=== PATIENT | female | born 1995 ===

== ENCOUNTER → 2017-10-03 | Outpatient (CLI) | payer MEDICAID, OTHER ==
--- NOTE | 2017-10-03 11:04 | Diagnostic Imaging Report ---
PROCEDURE: US OB SINGLE FETUS <14 WKS. TECHNIQUE: Multiple real-time grayscale images were obtained over the gravid uterus in various projections. INDICATION: Dating. FINDINGS: There is an intrauterine gestational sac containing a pole. measurements are consistent with 14 weeks 2 days gestation. heart rate was recorded at 160 beats per minute. No perigestational sac hemorrhage is identified. Adnexa is unremarkable. Ovaries were obscured by bowel gas. Gestational sac shape is within normal limits. IMPRESSION: Single live IUP of 14 weeks 2 days gestational age. Estimated date of confinement sonographic is 04/01/2018. Dictated by: Dictated on workstation # [id number]
== END ==
LOC: RAD 10:00
PROVIDERS: ATTEND Family Medicine
DX: Z34.91 Encounter for supervision of normal pregnancy, unspecified, first trimester (principal); Z3A.14 14 weeks gestation of pregnancy
CPT/HCPCS: 76801

== ENCOUNTER → 2018-01-30 | Outpatient (CLI) | payer OTHER ==
--- NOTE | 2018-01-30 14:01 | Diagnostic Imaging Report ---
INDICATION: Undergoing anatomical assessment. TECHNIQUE: Multiple real-time grayscale images were obtained over the gravid uterus. COMPARISON: 10/03/2017. FINDINGS: There is presence of single viable intrauterine , currently in cephalic presentation. Normal amount of amniotic fluid with an index at 12 cm. Placenta is anterior and without evidence for previa. anatomical assessment demonstrates visualization of the kidneys, bladder, stomach, and three-vessel cord which are appearing unremarkable. Multiple structures including the intracranial structures, cardiac structures, as well as spine and cord insertion site however are not well visualized at this assessment. Cervical length is 5.6 cm and appears unremarkable. Maternal adnexal structures are not visualized. Biometrical measurements are as follows: Biparietal 8.16 cm, age 32 weeks 6 days. Head circumference 28.72 cm, age 31 weeks 5 days. Abdominal circumference 29.61 cm, age 33 weeks 5 days. Femur length 6.58 cm, age 34 weeks 0 days. Sonographic estimate age: 33 weeks 1 days. Sonographic estimated date of delivery: 03/19/18. Estimated Weight: 2183 gm (+/- 319 gm). LMP percentile: 95%. heart rate: 146 beats per minute. number: 1 of 1. IMPRESSION: 1. Single viable intrauterine , currently in cephalic presentation. Sonographically estimated age at 33 weeks 1 day for an estimated date of delivery of March 19, 2018. This is noted to be nearly two weeks advanced compared to prior dating. 2. Nonvisualization of multiple anatomical structures. Visualized structures appear unremarkable. Dictated by: Dictated on workstation # [id number]
== END ==
LOC: RAD 12:22
PROVIDERS: ATTEND Family Medicine
DX: Z36.89 Encounter for other specified antenatal screening (principal); Z3A.33 33 weeks gestation of pregnancy
CPT/HCPCS: 76805

== ENCOUNTER → 2018-03-25 | Outpatient (CLI) | payer OTHER | LOC: LAB 08:09 | PROVIDERS: ATTEND Family Medicine | DX: Z34.93 Encounter for supervision of normal pregnancy, unspecified, third trimester (principal) | CPT/HCPCS: 36415; 82951; 82952; 82962 ==

== ENCOUNTER 2018-04-07 19:14 | Inpatient (IN) | payer OTHER ==
[~2018-04-07] VITALS: Ht 172.7 cm; Wt 128.4 kg
[2018-04-07 19:19] VITALS: BP 135/83
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
--- OUTSIDE RECORDS SUMMARY | 2018-04-07 19:20 | XMS REPORT ---
Author Author JEWELL OFELIA [facility] Address [address] [place] [address] Care Team Providers Care Elastic Cutter Name Role Phone JEWELLANA HENLEYHANY Unavailable PROBLEMS Type Condition ICD9-CM Code XHD54-PR Code Onset Dates Condition Status SNOMED Code Problem Other chronic pain G89.29 Active [id number] ALLERGIES No Information ENCOUNTERS Encounter Location Date Diagnosis [facility] [address] 31431- 1408 Feb, [facility] [address] 68548- 8992 Feb, [facility] [address] 01930- 8066 Jan, [facility] [address] 54120- 9615 Jan, [facility] [id number] [place] [address] 67334- 3968 Dec, care in third trimester Z34.93 and 28 weeks gestation of Z3A.28 [facility] [id number] [place] [address] 38113- 4720 Dec, [facility] [id number] [place] [address] 64283- 0998 Dec, [facility] [address] 96186- 9605 Dec, [facility] [id number] [place] [address] 73014- 3818 Nov, [facility] [address] 19298- 9153 Oct, [facility] [id number], [place] [address]- 4657 Oct, care in second trimester Z34.92 and 19 weeks gestation of Z3A.19 [facility] [address], [place] [address]- 3851 Oct, [facility] [address], [place] [address]- 3177 Sep, [facility] [address], [place] [address]- 4324 Sep, [facility] [id number] [place] [address] 35299- 1988 Sep, care in second trimester Z34.92 and 20 weeks gestation of Z3A.20 [facility] [address], [place] [address]- 7978 August, Dental examination Z01.20 [facility] [address], [place] [address]- 0812 August, [facility] [id number], [place] [address]- 3109 August, [facility] [address], [place] [address]- 5350 August, Normal , first Z34.00 ; First trimester Z34.90 and 15 weeks gestation of Z3A.15 [facility] [address], [place] [address]- 5384 August, [facility] [address], [place] [address]- 6005 Jul, [facility] [address], [place] [address]- 8033 Jul, Encounter for test, result unknown Z32.00 [facility] [address], [place] [address]- 0624 Jul, Encounter for test, result unknown Z32.00 [facility] [id number] [place] [address] 02699- 0451 14 May, 2016 Low back pain M54.5 ; Other chronic pain G89.29 and Acute non-recurrent frontal sinusitis J01.10 [facility] [id number] [place] [address] 28163- 0170 Apr, Acute right-sided low back pain without sciatica M54.5 [facility] [id number] [place] [address] 51700- 8455 Apr, Contusion T14.8 [facility] [address] 81012- 3995 Feb, Encounter for immunization Z23 [facility] [address] 97841- 1348 Nov, 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 and Constipation 564.00 [facility] [id number] [place] [address] 76705- 4861 Jul, [facility] [address] 63595- 4298 Jul, [facility] [id number] [place] [address] 67361- 4581 Apr, [facility] [id number] [place] [address] 88222- 6297 Apr, [facility] [id number] [place] [address] 07262- 8064 Apr, [facility] [id number] [place] [address] 03340- 2850 Apr, [facility] [id number] [place] [address] 09773- 7260 Jan, [facility] [id number] [place] [address] 81043- 3901 Jan, [facility] [address] [facility] [id number] [place] [address]- 2546 May, [facility] [address] [facility] [id number], [place] [address]- 2546 Mar, [facility] [address] [facility] [id number] [place] [address]- 1226 Mar, IMMUNIZATIONS No Known Immunizations SOCIAL HISTORY [...]
--- OUTSIDE RECORDS SUMMARY | 2018-04-07 19:20 | XMS REPORT ---
Author Author JEWELL OFELIA [facility] Address [address] [place] [address] Care Team Providers Care Green Hide Inspector Name Role Phone JEWELLANA HENLEYHANY Unavailable PROBLEMS Type Condition ICD9-CM Code AZG40-ZV Code Onset Dates Condition Status SNOMED Code Problem Other chronic pain G89.29 Active [id number] ALLERGIES No Information ENCOUNTERS Encounter Location Date Diagnosis [facility] [address] 29731- 9454 Feb, [facility] [address] 81885- 7224 Feb, [facility] [address] 31745- 9395 Jan, [facility] [address] 70430- 1410 Jan, [facility] [id number] [place] [address] 38251- 8228 Dec, care in third trimester Z34.93 and 28 weeks gestation of Z3A.28 [facility] [id number] [place] [address] 77271- 5937 Dec, [facility] [id number] [place] [address] 89159- 9884 Dec, [facility] [address] 90932- 8345 Dec, [facility] [id number] [place] [address] 32991- 9122 Nov, [facility] [address] 08242- 3747 Oct, [facility] [id number], [place] [address]- 7265 Oct, care in second trimester Z34.92 and 19 weeks gestation of Z3A.19 [facility] [address], [place] [address]- 3531 Oct, [facility] [address], [place] [address]- 2335 Sep, [facility] [address], [place] [address]- 2209 Sep, [facility] [id number] [place] [address] 98688- 2527 Sep, care in second trimester Z34.92 and 20 weeks gestation of Z3A.20 [facility] [address], [place] [address]- 3006 August, Dental examination Z01.20 [facility] [address], [place] [address]- 0365 August, [facility] [id number] [address]- 8412 August, [facility] [address], [place] [address]- 9020 August, Normal , first Z34.00 ; First trimester Z34.90 and 15 weeks gestation of Z3A.15 [facility] [address], [place] [address]- 1615 August, [facility] [address], [place] [address]- 2408 Jul, [facility] [address], [place] [address]- 0965 Jul, Encounter for test, result unknown Z32.00 [facility] [address], [place] [address]- 4594 Jul, Encounter for test, result unknown Z32.00 [facility] [id number] [place] [address] 58884- 4996 14 May, 2016 Low back pain M54.5 ; Other chronic pain G89.29 and Acute non-recurrent frontal sinusitis J01.10 [facility] [id number] [place] [address] 07518- 2662 Apr, Acute right-sided low back pain without sciatica M54.5 [facility] [id number] [place] [address] 92958- 5226 Apr, Contusion T14.8 [facility] [address] 95498- 8927 Feb, Encounter for immunization Z23 [facility] [address] 71917- 2841 Nov, 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 and Constipation 564.00 [facility] [id number] [place] [address] 01875- 2608 Jul, [facility] [address] 72033- 0755 Jul, [facility] [id number] [place] [address] 48658- 5372 Apr, [facility] [id number] [place] [address] 60663- 4111 Apr, [facility] [id number] [place] [address] 36357- 0710 Apr, [facility] [id number] [place] [address] 91247- 1372 Apr, [facility] [id number] [place] [address] 88286- 9867 Jan, [facility] [id number] [place] [address] 31755- 6236 Jan, [facility] [address] [facility] [id number] [place] [address]- 2546 May, [facility] [address] [facility] [id number], [place] [address]- 2546 Mar, [facility] [address] [facility] [id number] [place] [address]- 2206 Mar, IMMUNIZATIONS No Known Immunizations SOCIAL HISTORY [...]
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
--- OUTSIDE RECORDS SUMMARY | 2018-04-07 19:21 | XMS REPORT ---
Author Author JEWELL OFELIA [facility] Address [address] [place] [address] Care Team Providers Care Pattern Cleaner Name Role Phone JEWELLANA HENLEYHANY Unavailable PROBLEMS Type Condition ICD9-CM Code FAE06-LF Code Onset Dates Condition Status SNOMED Code Problem Other chronic pain G89.29 Active 99935579 ALLERGIES No Information ENCOUNTERS Encounter Location Date Diagnosis [facility] [address] 35240- 7529 Feb, [facility] [address] 47981- 0963 Feb, [facility] [address] 50897- 4801 Jan, [facility] [address] 75771- 6064 Jan, [facility] [id number] [place] [address] 30199- 8727 Dec, care in third trimester Z34.93 and 28 weeks gestation of Z3A.28 [facility] [id number] [place] [address] 73065- 5640 Dec, [facility] [id number] [place] [address] 54198- 0471 Dec, [facility] [address] 12891- 7173 Dec, [facility] [id number] [place] [address] 39162- 9796 Nov, [facility] [address] 78531- 4389 Oct, [facility] [id number] [address]- 3627 Oct, care in second trimester Z34.92 and 19 weeks gestation of Z3A.19 [facility] [address], [place] [address]- 6795 Oct, [facility] [address], [place] [address]- 2850 Sep, [facility] [address], [place] [address]- 2430 Sep, [facility] [id number] [place] [address] 81645- 3992 Sep, care in second trimester Z34.92 and 20 weeks gestation of Z3A.20 [facility] [address], [place] [address]- 6006 August, Dental examination Z01.20 [facility] [address], [place] [address]- 3620 August, [facility] [id number], [place] [address]- 3682 August, [facility] [address], [place] [address]- 5832 August, Normal , first Z34.00 ; First trimester Z34.90 and 15 weeks gestation of Z3A.15 [facility] [address], [place] [address]- 1091 August, [facility] [address], [place] [address]- 5151 Jul, [facility] [address], [place] [address]- 5371 Jul, Encounter for test, result unknown Z32.00 [facility] [address], [place] [address]- 1210 Jul, Encounter for test, result unknown Z32.00 [facility] [id number] [place] [address] 31571- 1901 14 May, 2016 Low back pain M54.5 ; Other chronic pain G89.29 and Acute non-recurrent frontal sinusitis J01.10 [facility] [id number] [place] [address] 65744- 0012 Apr, Acute right-sided low back pain without sciatica M54.5 [facility] [id number] [place] [address] 26711- 4553 Apr, Contusion T14.8 [facility] [address] 73531- 6826 Feb, Encounter for immunization Z23 [facility] [address] 45521- 5645 Nov, 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 and Constipation 564.00 [facility] [id number] [place] [address] 23114- 5461 Jul, [facility] [address] 21510- 1074 Jul, [facility] [id number] [place] [address] 34213- 2038 Apr, [facility] [id number] [place] [address] 94049- 7136 Apr, [facility] [id number] [place] [address] 83829- 8474 Apr, [facility] [id number] [place] [address] 33081- 3461 Apr, [facility] [id number] [place] [address] 22830- 1816 Jan, [facility] [id number] [place] [address] 50481- 4477 Jan, [facility] [address] [facility] [id number] [place] [address]- 2546 May, [facility] [address] [facility] [id number] [address]- 2546 Mar, [facility] [address] [facility] [id number] [place] [address]- 0686 Mar, IMMUNIZATIONS No Known Immunizations SOCIAL HISTORY [...]
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
--- OUTSIDE RECORDS SUMMARY | 2018-04-07 19:21 | XMS REPORT ---
Author Author JEWELL OFELIA [facility] Address [address] [place] [address] Care Team Providers Care Signal Intelligence Analyst Name Role Phone JEWELLANA HENLEYHANY Unavailable PROBLEMS Type Condition ICD9-CM Code XVJ48-MH Code Onset Dates Condition Status SNOMED Code Problem Other chronic pain G89.29 Active 43031023 ALLERGIES No Information ENCOUNTERS Encounter Location Date Diagnosis [facility] [address] 15978- 3561 Feb, [facility] [address] 30173- 8872 Feb, [facility] [address] 58574- 6968 Jan, [facility] [id number] [place] [address] 37356- 7370 Jan, [facility] [id number] [place] [address] 38914- 6470 Dec, care in third trimester Z34.93 and 28 weeks gestation of Z3A.28 [facility] [id number] [place] [address] 99047- 1189 Dec, [facility] [id number] [place] [address] 57582- 2846 Dec, [facility] [address] 44288- 5375 Dec, [facility] [id number] [place] [address] 06809- 1268 Nov, [facility] [address] 01781- 0933 Oct, [facility] [id number] [address]- 5478 Oct, care in second trimester Z34.92 and 19 weeks gestation of Z3A.19 [facility] [address], [place] [address]- 8401 Oct, [facility] [address], [place] [address]- 0967 Sep, [facility] [address], [place] [address]- 9213 Sep, [facility] [id number] [place] [address] 05195- 7057 Sep, care in second trimester Z34.92 and 20 weeks gestation of Z3A.20 [facility] [address], [place] [address]- 9938 August, Dental examination Z01.20 [facility] [address], [place] [address]- 5396 August, [facility] [address] [address]- 4898 August, [facility] [address], [place] [address]- 0671 August, Normal , first Z34.00 ; First trimester Z34.90 and 15 weeks gestation of Z3A.15 [facility] [address], [place] [address]- 9894 August, [facility] [address], [place] [address]- 9548 Jul, [facility] [address], [place] [address]- 7754 Jul, Encounter for test, result unknown Z32.00 [facility] [address], [place] [address]- 6669 Jul, Encounter for test, result unknown Z32.00 [facility] [id number] [place] [address] 76858- 4264 14 May, 2016 Low back pain M54.5 ; Other chronic pain G89.29 and Acute non-recurrent frontal sinusitis J01.10 [facility] [id number] [place] [address] 53554- 9704 Apr, Acute right-sided low back pain without sciatica M54.5 [facility] [id number] [place] [address] 31376- 0318 Apr, Contusion T14.8 [facility] [address] 93641- 5406 Feb, Encounter for immunization Z23 [facility] [address] 94499- 1417 Nov, 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 and Constipation 564.00 [facility] [id number] [place] [address] 13827- 8450 Jul, [facility] [address] 48665- 6216 Jul, [facility] [id number] [place] [address] 19721- 1166 Apr, [facility] [id number] [place] [address] [id number]- [id number] Apr, [facility] [id number] [place] [address] 69970- 7445 Apr, [facility] [id number] [place] [address] 37582- 7757 Apr, [facility] [id number] [place] [address] [id number]- [phone] Jan, [facility] [id number] [place] [address] 81805- 1244 Jan, [facility] [address] [facility] [id number] [place] [address] May, [facility] [address] [facility] [id number] [address] Mar, [facility] [address] [facility] [id number] [place] [address] Mar, IMMUNIZATIONS No Known Immunizations SOCIAL HISTORY [...]
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
--- OUTSIDE RECORDS SUMMARY | 2018-04-07 19:22 | XMS REPORT ---
Author Author OFELIA FRANKLIN [facility] Address [address] [place] [address] Care Team Providers Care Nodulizer Name Role Phone OFELIA FRANKLIN Unavailable PROBLEMS Type Condition ICD9-CM Code OGT57-SX Code Onset Dates Condition Status SNOMED Code Problem Other chronic pain G89.29 Active 65627252 ALLERGIES Substance Reaction Event Type Date Status Penicillins Unknown Non Drug Allergy Apr, Active SOCIAL HISTORY No smoking Hx information available PLAN OF CARE Activity Details Follow Up pcp if not improving or if needing refill Reason: VITAL SIGNS Height 68.0 in 2016-04-25 Weight 225 lbs 2016-04-25 Temperature 99.2 degrees Fahrenheit 2016-04-25 Heart Rate 80 bpm 2016-04-25 Respiratory Rate 20 2016-04-25 BMI 34.21 kg/m2 2016-04-25 Blood pressure systolic 122 mmHg 2016-04-25 Blood pressure diastolic 72 mmHg 2016-04-25 MEDICATIONS Medication Instructions Dosage Frequency Start Date End Date Duration Status Cyclobenzaprine HCl 10 mg Orally at bedtime PRN 1 tablet Apr, Apr, 10 days Active Ibuprofen 200 mg Orally every 6 hrs 3-4 tablet as needed 6h Active RESULTS No Results PROCEDURES Procedure Date Ordered Related Diagnosis Body Site Office Visit, Est Pt., Level 3 Apr 25, 2016 IMMUNIZATIONS No Known Immunizations
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
--- OUTSIDE RECORDS SUMMARY | 2018-04-07 19:22 | XMS REPORT ---
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 Active Problem Other and unspecified cerebral laceration and contusion, without mention of open intracranial wound, unspecified state of consciousness 851.80 Active Problem Memory loss 780.93 Active Assessment Constipation 564.00 Active Problem Constipation 564.00 Active Problem Unspecified otitis media 382.9 Active Problem 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 Active Problem Dysuria 788.1 Active Problem Urinary tract infection, site not specified 599.0 Active Problem Acute pharyngitis 462 Active Problem Postnasal drip 784.91 Active Medications No Known Medications Procedures Procedure Coding System Code Date Office Visit, Est Pt., Level 4 CPT-4 03082 Dec 12, 2014 Vital Signs Date/Time: Dec 12, 2014 Temperature 98.1 F BMIPercentile 97.53 % Weight 218.8 lbs Height 68.0 in BMI 33.26 Index Blood Pressure Diastolic 60 mmHg Blood Pressure Systolic 102 mmHg Cardiac Monitoring Heart Rate 88 bpm Wt Percentile 98.68 % Ht Percentile 93.51 % Results No Known Results Summary Purpose eClinicalWorks Submission
--- OUTSIDE RECORDS SUMMARY | 2018-04-07 19:22 | XMS REPORT ---
Author Author JEWELL OFELIA [facility] Address [address] [place] [address] Care Team Providers Care Song Writer Name Role Phone JEWELLANA HENLEYHANY Unavailable PROBLEMS Type Condition ICD9-CM Code GSO33-BJ Code Onset Dates Condition Status SNOMED Code Problem Other chronic pain G89.29 Active 25494400 ALLERGIES No Information ENCOUNTERS Encounter Location Date Diagnosis [facility] [place] [address] [address] Nov, [place] [address] [address]- [address] Oct, care in second trimester Z34.92 and 19 weeks gestation of Z3A.19 [facility] [place] [address] [place] [id number] [place] [address]- [address] Oct, [facility] [place] [address] 47[address]- [address] Sep, [facility] [place] [address] [place] [id number] [place] [address] 12719- 6135 Sep, care in second trimester Z34.92 and 20 weeks gestation of Z3A.20 [facility] [place] [address] [place] [id number] [place] [address] 27149- 3344 August, Dental examination Z01.20 [facility] [place] [address] [place] [id number] [place] [address] 52242- 7334 August, [facility] [place] [address] [address]- [address] August, [facility] [place] [address] [place] [id number] [place] [address] 48268- 9597 09 May, 2018 Normal , first Z34.00 ; First trimester Z34.90 and 15 weeks gestation of Z3A.15 [place] [address] [place] [id number] [place] [address]65[address]- 4317 August, [facility] [place] [address] [place] [id number] [place] [address] 91697- 9852 Jul, [place] [address] [address]- [address] Jul, Encounter for test, result unknown Z32.00 [place] [address] [address]- [address] Jul, Encounter for test, result unknown Z32.00 [place] [address] [address]- [address] May, Low back pain M54.5 ; Other chronic pain G89.29 and Acute non-recurrent frontal sinusitis J01.10 [place] [address] [address]- 6[address] Apr, Acute right-sided low back pain without sciatica M54.5 [place] [address] [address]- [address] Apr, Contusion T14.8 [place] [address] [address]- [address] Feb, Encounter for immunization Z23 [place] [address] [address]- [address]60 Nov, 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 and Constipation 564.00 [place] [address] [address]- [address] Jul, [place] [address] [address]- 1384 Jul, [place] [address] 9[address]- 9[address] Apr, [place] [address] [address]- [address] Apr, [facility] [place] [address] [address] 2546 Apr, [facility] [place] [address] [address]- 2546 Apr, [facility] [place] [address] [address]- 25[address] Jan, [facility] [place] [address] [address]- 25[address] Jan, [facility] [place] [address] [address]- 2546 May, [facility] [place] [address] [address]- 2546 Mar, [facility] [place] [address] [address]- [address] Mar, IMMUNIZATIONS No Known Immunizations SOCIAL [...]
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
--- OUTSIDE RECORDS SUMMARY | 2018-04-07 19:22 | XMS REPORT | Continuity of Care Document ---
Author Author [facility] Address Unknown Phone Unavailable Allergies Active Description Code Type Severity Reaction Onset Reported/Identified Relationship to Patient Clinical Status Yes Penicillins Drug Allergy 03/23/2012 Yes Penicillins Drug Allergy N/A N/A 03/23/2012 Medications There is no data. Problems Date Dx Coded Attending Type Code Diagnosis Diagnosed By 01/16/2010 V06.5 DT, TETANUS- DIPHTHERIA [Td] ,TDAP 01/16/2010 V06.5 DT, TETANUS- DIPHTHERIA [Td] ,TDAP 01/16/2010 KAVON DING DO V06.5 DT, TETANUS-DIPHTHERIA [Td] ,TDAP 01/16/2010 SHAHLA GARCIA APRN A V06.5 DT, TETANUS-DIPHTHERIA [Td] ,TDAP 03/23/2012 382.9 OTITIS MEDIA 03/23/2012 382.9 OTITIS MEDIA 03/23/2012 KAVON DING DO 382.9 OTITIS MEDIA 03/23/2012 SHAHLA GARCIA APRN A 382.9 OTITIS MEDIA 05/26/2012 462 PHARYNGITIS ACUTE 05/26/2012 784.91 POSTNASAL DRIP 05/26/2012 KAVON DING DO 462 PHARYNGITIS ACUTE 05/26/2012 KAVON DING DO 784.91 POSTNASAL DRIP 05/26/2012 RADHA CHRISTINE SHAHLA A 462 PHARYNGITIS ACUTE 05/26/2012 EVAN GARCIA APRNYL A 784.91 POSTNASAL DRIP 02/08/2014 KAVON DING DO 780.93 MEMORY LOSS 02/08/2014 KAVON DING DO 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 CONTUSION WITHOUT OPEN INTRACRANIAL WOUND WITH STATE OF CONSCIOUSNESS UNSPECIFIED 02/08/2014 SHAHLA GARCIA APRN A 780.93 MEMORY LOSS 02/08/2014 SHAHLA GARCIA APRN A 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 CONTUSION WITHOUT OPEN INTRACRANIAL WOUND WITH STATE OF CONSCIOUSNESS UNSPECIFIED 04/28/2014 SHAHLA GARCIA APRN A 599.0 URINARY TRACT INFECTION 04/28/2014 SHAHLA GARCIA APRN A 788.1 DYSURIA 10/06/2017 OFELIA CORCORAN MD Ot Z34.91 ENCNTR FOR SUPRVSN OF NORMAL PREG, UNSP, 10/06/2017 OFELIA CORCORAN MD Ot Z3A.14 14 WEEKS GESTATION OF 10/06/2017 OFELAI CORCORAN MD Ot Z34.91 ENCNTR FOR SUPRVSN OF NORMAL PREG, UNSP, 10/06/2017 OFELIA CORCORAN MD Ot Z3A.14 14 WEEKS GESTATION OF 10/09/2017 OFELIA CORCORAN MD Ot Z34.91 ENCNTR FOR SUPRVSN OF NORMAL PREG, UNSP, 10/09/2017 OFELIA CORCORAN MD Ot Z3A.14 14 WEEKS GESTATION OF 10/23/2017 OFELIA CORCORAN MD Ot Z34.91 ENCNTR FOR SUPRVSN OF NORMAL PREG, UNSP, 10/23/2017 OFELIA CORCORAN MD Ot Z3A.14 14 WEEKS GESTATION OF 01/30/2018 OFELIA CORCORAN MD Ot Z34.91 ENCNTR FOR SUPRVSN OF NORMAL PREG, UNSP, 01/30/2018 OFELIA CORCORAN MD Ot Z3A.14 14 WEEKS GESTATION OF 02/18/2018 OFELIA CORCORAN MD Ot Z36.89 ENCOUNTER FOR OTHER SPECIFIED 02/18/2018 OFELIA CORCORAN MD Ot Z3A.33 33 WEEKS GESTATION OF 03/23/2018 OFELIA CORCORAN MD Ot Z34.91 ENCNTR FOR SUPRVSN OF NORMAL PREG, UNSP, 03/23/2018 OFELIA CORCORAN MD N Ot Z3A.14 14 WEEKS GESTATION OF 03/23/2018 OFELIA CORCORAN MD Ot Z36.89 ENCOUNTER FOR OTHER SPECIFIED 03/23/2018 OFELIA CORCORAN MD Ot Z3A.33 33 WEEKS GESTATION OF 03/23/2018 OFELIA CORCORAN MD Ot Z34.91 ENCNTR FOR SUPRVSN OF NORMAL PREG, UNSP, 03/23/2018 OFELIA CORCORAN MD, Ot Z3A.14 14 WEEKS GESTATION OF 03/23/2018 OFELIA CORCORAN MD, Ot Z36.89 ENCOUNTER FOR OTHER SPECIFIED 03/23/2018 OFELIA CORCORAN MD, Ot Z3A.33 33 WEEKS GESTATION OF 03/27/2018 OFELIA CORCORAN MD, Ot Z34.93 ENCNTR FOR SUPRVSN OF NORMAL PREG, UNSP, Procedures Code Description [place] [address] STREP A (IN-HOUSE) 05/26/[address] ANGIO, HEAD 02/08/2014 89700 UA W/ CULTURE IF INDICATED 04/28/2014 Results Test Result Range hCG,Beta Subunit,Qual,Serum - 07/30/16 16:04 hCG,Beta Subunit,Qual,Serum Negative mIU/mL Negative <6 CULTURE, GENITAL - 08/27/17 15:49 CULTURE, GENITAL SEE NOTE NRG PENTA SCREEN - 11/06/17 12:39 Maternal Weight 242 lbs NRG Est'd Date of Delivery 04/01/2018 NRG ASHKAN Determined by ULTRASOUND NRG Mother's Ethnic Origin NRG Number of Fetuses 1 NRG Insulin Depend Diabetic NO NRG Repeat Specimen NOT GIVEN NRG Hx Of Neural Tube Defects NO NRG Prev Down Synd NO NRG Donor Egg NO NRG Donor Age: Egg Retrieval NOT GIVEN NRG Cigarette smoker NO NRG INTERPRETATION: SEE NOTE NRG Risk for ONTD 1:3400 NRG Age Risk Down Syndrome 1:1178 NRG AUGUST Down Syndrome Risk <1:5000 <1:270 AUGUST Trisomy 18 Risk <1:5000 <1:100 Calc'd Gestational Age 19.1 NRG AFP, Serum 36.9 ng/mL NRG AFP MoM 1.00 NRG hCG, Serum 38.3 IU/mL NRG hCG MoM 2.27 NRG Estriol, Free 1.80 ng/mL NRG Estriol MoM 1.40 NRG Inhibin A, Dimeric 168 pg/mL NRG Inhibin A MoM 1.26 NRG h-hCG, Serum 33.3 mcg/L NRG h-hCG MoM 3.03 NRG Date of 1995 NRG Collection Date 11/06/2017 NRG CBC - 01/13/18 11:24 WHITE BLOOD CELL COUNT 9.5 Thousand/uL 3.8-10.8 RED BLOOD CELL COUNT 3.78 Million/uL 3.80-5.10 HEMOGLOBIN 11.5 g/dL 11.7-15.5 HEMATOCRIT 33.6 % 35.0-45.0 MCV 88.9 fL 80.0-100.0 MCH 30.4 pg 27.0-33.0 MCHC 34.2 g/dL 32.0-36.0 RDW 12.7 % 11.0-15.0 PLATELET COUNT 237 Thousand/uL 140-400 MPV 10.5 fL 7.5-12.5 ABSOLUTE NEUTROPHILS 6660 cells/uL 4268-7838 ABSOLUTE LYMPHOCYTES 2081 cells/uL 850-3900 ABSOLUTE MONOCYTES 627 cells/uL 200-950 ABSOLUTE EOSINOPHILS 105 cells/uL 15-500 ABSOLUTE BASOPHILS 29 cells/uL 0-200 NEUTROPHILS 70.1 % NRG LYMPHOCYTES 21.9 % NRG MONOCYTES 6.6 % NRG EOSINOPHILS 1.1 % NRG BASOPHILS 0.3 % NRG CULTURE, GENITAL - 01/27/18 14:12 CULTURE, GENITAL SEE NOTE NRG CULTURE, GROUP B STREP WITH SUSCEPTIBILITY - 03/10/18 16:07 CULTURE, GROUP B STREP WITH SUSCEPTIBILITY SEE NOTE NRG Capillary blood glucose measurement by glucometer (mass/volume) - 03/25/18 08: 27 Capillary blood glucose measurement by glucometer (mass/volume) 75 mg/dL 70-110 Serum or plasma glucose measurement 3 hours post challenge (mass/volume) - 09/05 08:30 Serum or plasma glucose measurement 3 hours post challenge (mass/volume) NRG Encounters ACCT No. Visit Date/Time Discharge Status Pt. Type Provider Facility Loc./Unit Complaint [id number] 04/28/2014 14:40:00 04/28/2014 23:59:59 CLS Outpatient SHAHLA GARCIA APRN [id number] 02/08/2014 16:07:00 02/08/2014 23:59:59 CLS Outpatient KAVON DING DO [id number] 05/26/2012 17:52:00 05/26/2012 23:59:59 CLS Outpatient [id number] 03/23/2012 12:02:00 03/23/2012 23:59:59 CLS Outpatient [id number] 03/30/2018 14:00:00 03/30/2018 23:59:59 CLS Outpatient MARIA DEL CARMEN EVANS [facility] [id number] 03/10/2018 11:20:00 Document Registration [id number] 01/27/2018 11:20:00 Document Registration [id number] 01/13/2018 11:20:00 Document Registration [id number] 11/06/2017 11:20:00 Document Registration [id number] 08/27/2017 14:20:00 Document Registration [id number] 03/25/2018 08:09:00 03/25/2018 23:59:59 CLS Outpatient OFELIA CORCORAN MD [facility] LAB Z34.93 [id number] 02/13/2018 14:37:00 02/13/2018 23:59:59 CLS Preadmit OFELIA CORCORAN MD [facility] RAD EVALUATE ANATOMY NOT SEEN ON PRIOR SONOGRAM [id number] 01/30/2018 12:22:00 01/30/2018 23:59:59 CLS Outpatient OFELIA CORCORAN MD [facility] RAD CARE IN THIRD TRIMESTER Z34.93 [id number] 11/11/2017 13:05:00 11/11/2017 23:59:59 CLS Preadmit OFELIA CORCORAN MD [facility] RAD CARE IN SECOND TRIMESTER [id number] 10/03/2017 10:00:00 10/03/2017 23:59:59 CLS Outpatient OFELIA CORCORAN MD [facility] RAD NORMAL FIRST [id number] 07/31/2016 08:07:00 Document Registration
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
[2018-04-07] MEDS ORDERED: LACTATED RINGERS 1,000 ML IV SCH (19:42)
[2018-04-07] MEDS ORDERED: TERBUTALINE INJ 1 MG/ML (BRETHINE) AMP SC PRN (19:45)
[2018-04-07] MEDS ORDERED: MINERAL OIL CONCENTRATE 99.9% 15 ML UDC TOP PRN (19:45)
[2018-04-07] MEDS ORDERED: fentaNYL INJECTION 100 MCG/2 ML AMP IVP PRN (19:45)
[2018-04-07 20:14] LABS: BASOPHILS % (AUTO) 0 % (0-10); EOSINOPHILS % (AUTO) 0 % (0-10); HEMATOCRIT 35 % (35-52); HEMOGLOBIN 12.1 G/DL (11.5-16.0); LYMPHOCYTES # (AUTO) 1.9 X 10^3 (1.0-4.0); LYMPHOCYTES % (AUTO) 23 % (12-44); MEAN CORPUSCULAR HEMOGLOBIN 28 PG (25-34); MEAN CORPUSCULAR HGB CONC 34 G/DL (32-36); MEAN CORPUSCULAR VOLUME 83 FL (80-99); MEAN PLATELET VOLUME 11.4 FL (7.4-10.4); MONOCYTES # (AUTO) 0.5 X 10^3 (0.0-1.0); MONOCYTES % (AUTO) 6 % (0-12); NEUTROPHILS # (AUTO) 5.9 X 10^3 (1.8-7.8); NEUTROPHILS % (AUTO) 71 % (42-75); PLATELET COUNT 237 10^3/uL (130-400); RED BLOOD COUNT 4.27 10^6/uL (4.35-5.85); RED CELL DISTRIBUTION WIDTH 14.1 % (10.0-14.5); WHITE BLOOD COUNT 8.3 10^3/uL (4.3-11.0)
[2018-04-07] MEDS: MISOPROSTOL 100 MCG (CYTOTEC) TAB PV SCH (20:25)
[2018-04-07 20:30] VITALS: BP 120/70
[2018-04-07] MEDS: D5 LR IV SOLUTION 1,000 ML IV SCH (20:38)
[2018-04-07 21:43] LABS: BILIRUBIN,URINE NEGATIVE (NEGATIVE); GLUCOSE, URINE (UA) 3+ (NEGATIVE); KETONES,URINE 1+ (NEGATIVE); LEUKOCYTE ESTERASE ,URINE 1+ (NEGATIVE); NITRITE,URINE NEGATIVE (NEGATIVE); PH,URINE 6.5 (5-9); PROTEIN,URINE 2+ (NEGATIVE); UROBILINOGEN,URINE 1 MG/DL (NORMAL)
[2018-04-07 21:46] VITALS: BP 141/70
[2018-04-07 21:51] LABS: BACTERIA,URINE FEW /HPF; CLARITY,URINE CLEAR; COLOR,URINE YELLOW; RBC,URINE 0-2 /HPF
[2018-04-07] MEDS ORDERED: CATHETER FLUSH 10 ML SYR IV SCH (22:00)
[2018-04-07 22:46] VITALS: BP 116/56
[2018-04-07 23:45] VITALS: BP 137/62
[2018-04-08] VITALS (71 sets, daily range): BP systolic 98–202; BP diastolic 50–143
[2018-04-08] MEDS: MISOPROSTOL 100 MCG (CYTOTEC) TAB PV SCH ×2 (00:56→04:14)
[2018-04-08] MEDS: D5 LR IV SOLUTION 1,000 ML IV SCH ×3 (04:03→18:55)
[2018-04-08] MEDS: fentaNYL INJECTION 100 MCG/2 ML AMP IVP PRN ×2 (08:51→10:29)
--- NOTE | 2018-04-08 08:54 | History & Physical-OB ---
OB - Chief Complaint & HPI Date/Time Date of Admission: Date of Admission: Apr 07, 2018 at 19:14 Date seen by a Provider: Apr 08, 2018 Time Seen by a Provider: 08:10 Chief Complaint/History OB-Reason for Admission/Chief: Induction of Labor Hx : 1 Hx Para: 0 Expected Date of Delivery: Apr 01, 2018 Gestational Age in Weeks: 41 Gestational Age in Days: 0 Indication for induction: post dates History of Labs A+, antibody neg, RI. GC/chlamydia neg. RPR/HepB/HIV neg. 1 hour glucola normal. 3 hour glucola neg last week. GBS neg. Allergies and Home Medications Allergies Coded Allergies: No Known Drug Allergies (Unverified , 04/07/18) Home Medications No Active Prescriptions or Reported Meds Patient Home Medication List Home Medication List Reviewed: Yes OB - History Hx of Present Ultrasounds: Other (Incomplete anatomy US due to late gestation at time of US due to missed appointments) Obstetrical Complications: Other (glucosuria, negative 3 hour glucose tolerance ) Information Induced Hypertension: No Maternal Gestational Diabetes: No Hemorrhage: No Obstetrical History Hx : 1 Hx Para: 0 Patient Past Medical History PMHx: Denies SurgHx: Arm fracture Social History/Family History HIV/AIDS: No Recent Infectious Disease Expo: No Sexually Transmitted Disease: No Alcohol Use: Denies Use Recreational Drug Use: No Smoking Cessation: Never smoker Immunizations Date of Influenza Vaccine: Jan 27, 2018 Rubella: immune RPR/VDRL: Negative GBS Status: Negative HBsAG: Negative OB - Admission Exam Physical Exam Vitals: Vital Signs 04/08/18 04/08/18 05:35 06:35 Temp 98.3 Pulse 83 Resp 18 B/P (MAP) 116/56 (76) O2 Delivery Room Air HEENT: NCAT Abdomen: Non tender Extremities: Normal Cervical Dilatation: 4cm Effacement: 75% Station: -1 Membranes: Intact Accelerations: Accelerations Present Decelerations: No Decelerations Short Term Variability: Present Time Study Analyst Variability: Average (6-25) Contractions on Admission: None Adler Scoring Tool (Modified) Dilation (cm): 1-2cm (1) Effacement (%): 31-51% (1) Descent/Station: -3 (0) Cervix Consistency: Firm (0) Cervix Position: Anterior (2) Subtract 1 point for: Postdate (-1), Nulliparity (-1) Adler Score: 2 Labs Laboratory Tests Test 04/07/18 19:15 04/07/18 20:00 Range/Units Urine Color YELLOW Urine Clarity CLEAR Urine pH 6.5 5-9 Urine Specific [place] 1.015 L 1.016-1.022 Urine Protein 2+ H NEGATIVE Urine Glucose (UA) 3+ H NEGATIVE Urine Ketones 1+ H NEGATIVE Urine Nitrite NEGATIVE NEGATIVE Urine Bilirubin NEGATIVE NEGATIVE Urine Urobilinogen 1 NORMAL MG/DL Urine Leukocyte Esterase 1+ H NEGATIVE Urine RBC (Auto) NEGATIVE NEGATIVE Urine RBC 0-2 /HPF Urine WBC 2-5 /HPF Urine Squamous Epithelial Cells 2-5 /HPF Urine Crystals NONE /LPF Urine Bacteria FEW H /HPF Urine Casts NONE /LPF Urine Mucus LARGE H /LPF Urine Culture Indicated NO White Blood Count 8.3 4.3-11.0 10^3/uL Red Blood Count 4.27 L 4.35-5.85 10^6/uL Hemoglobin 12.1 11.5-16.0 G/DL Hematocrit 35 35-52 % Mean Corpuscular Volume 83 80-99 FL Mean Corpuscular Hemoglobin 28 25-34 PG Mean Corpuscular Hemoglobin Concent 34 32-36 G/DL Red Cell Distribution Width 14.1 10.0-14.5 % Platelet Count 237 130-400 10^3/uL Mean Platelet Volume 11.4 H 7.4-10.4 FL Neutrophils (%) (Auto) 71 42-75 % Lymphocytes (%) (Auto) 23 12-44 % Monocytes (%) (Auto) 6 0-12 % Eosinophils (%) (Auto) 0 0-10 % Basophils (%) (Auto) 0 0-10 % Neutrophils # (Auto) 5.9 1.8-7.8 X 10^3 Lymphocytes # (Auto) 1.9 1.0-4.0 X 10^3 Monocytes # (Auto) 0.5 0.0-1.0 X 10^3 Eosinophils # (Auto) 0.0 0.0-0.3 10^3/uL Basophils # (Auto) 0.0 0.0-0.1 10^3/uL OB - Assessment/Plan/Diagnosis Assessment Admission Dx 41 weeks gestation IOL Admission Status: Inpatient Order (span 2 midnights) Reason for Inpatient Admission: Induction, labor and course Plan Plan: Induction Induction Method: per Misoprostol Protocol OFELIA CORCORAN MD Apr 08, 2018 08:53
[2018-04-08] MEDS ORDERED: TERBUTALINE INJ 1 MG/ML (BRETHINE) AMP SC ONE (10:00)
[2018-04-08] MEDS ORDERED: OXYTOCIN/NORMAL SALINE 500 ML IV SCH (10:14)
[2018-04-08] MEDS ORDERED: OXYTOCIN/NORMAL SALINE 500 ML IV ONE (10:16)
[2018-04-08] MEDS ORDERED: fentaNYL INJECTION 100 MCG/2 ML AMP ONE (11:22)
[2018-04-08] MEDS ORDERED: BUPIVACAINE 0.25% 30 ML (SENSORCAINE) VIAL ONE (11:22)
[2018-04-08] MEDS ORDERED: LIDOCAINE PF 2% 5 ML (XYLOCAINE) VIAL ONE (11:22)
[2018-04-08] MEDS ORDERED: SUFENTA 0.6MCG/ML BUPIVA 0.125 100 ML ONE (11:22)
[2018-04-08] MEDS: EPIDURAL (SUFENTA 0.6MCG/ML BUPIVA 0.125%) 100 ML BAG EPI PRN ×2 (11:43→19:28)
[2018-04-08] MEDS ORDERED: LACTATED RINGERS 1,000 ML IV ONE ×2 (11:50)
[2018-04-08] MEDS ORDERED: NALOXONE 0.4 MG/ML 1 ML (NARCAN) VIAL IV PRN (12:00)
[2018-04-08] MEDS ORDERED: ONDANSETRON 4 MG/2 ML (SDV) Z0FRAN IV PRN (12:00)
[2018-04-08] MEDS ORDERED: METOCLOPRAMIDE INJ 10 MG/2 ML (REGLAN) IV PRN (12:00)
[2018-04-08] MEDS ORDERED: CITRIC ACID/SOB CIT (BICITRA) 30 ML UDC ONE (16:43)
[2018-04-08] MEDS ORDERED: FAMOTIDINE 20MG/2ML IV (PEPCID) ONE (16:43)
[2018-04-08] MEDS ORDERED: LIDOCAINE 1% INJ 20 ML 20 ML VIAL ONE (22:45)
[2018-04-09] VITALS (15 sets, daily range): BP systolic 116–177; BP diastolic 57–92
--- NOTE | 2018-04-09 02:12 | OB Labor & Delivery Record ---
Vag Delivery Note Vag Delivery Note Date of Delivery: 04/09/18 Preoperative Diagnosis: Angela Vogt is a 22 /Para 1 / 0, Gestational Age (wks)41with 1 day Postoperative Diagnosis: Same Surgeon: OFELIA CORCORAN Anesthesia: Epidural Delivery Type: Spontaneous vaginal Findings: Viable female , apgars 9/9, weight 8#11 Lacerations: First degree left vaginal, right periurethral abrasion Intact placenta with 3 vessel cord. No nuchal cord, body cord or shoulder dystocia Estimated Blood Loss: 200 ml Complications: None Condition: Stable Description of Procedure: The patient is a G1 who presented for IOL at 41 weeks gestation. She was admitted and informed consent was obtained. Her labor course was unremarkable. She progressed to complete dilatation and began to push. She was then set up for delivery. The 's head was delivered atraumatically in the LEN position. The shoulders and remainder of the infant's body were then delivered without difficulty. Upon delivery, the was vigorous and placed on maternal abdomen and the mouth and nares were bulb suctioned. After a delay, the cord was doubly clamped and cut and the remained on maternal abdomen. An intact placenta with 3-vessel cord delivered via Orlin and there was found to be minimal bleeding.~ Vigorous fundal massage was performed and the fundus was found to be firm. IV oxytocin was given. Examination of the vagina and perineum revealed a left vaginal laceration repaired in the usual fashion with 3-0 vicryl suture and right periurethral abrasion that was hemostatic not requiring repair. Following the repair, sponge, instrument and needle counts were correct. Mom and baby were both in stable condition in the labor suite. Vitals - Labs Vital Signs - I&O Vital Signs Date Time Temp Pulse Resp B/P (MAP) Pulse Ox O2 Delivery O2 Flow Rate FiO2 04/08/18 21:32 82 18 127/71 (89) Room Air 04/08/18 21:16 77 18 123/66 (85) Room Air 04/08/18 21:03 85 18 118/64 (82) 97 Room Air 04/08/18 20:45 97 18 117/73 (88) 97 Room Air 04/08/18 20:32 87 18 143/75 (97) 97 Room Air 04/08/18 20:16 78 18 144/74 (97) 97 Room Air 04/08/18 20:02 83 18 115/57 (76) 97 Room Air 18 19:48 93 18 139/83 (101) 97 Room Air 18 19:32 87 18 140/86 (104) 97 Room Air 04/08/18 19:15 99.3 95 18 144/92 (109) 98 Room Air 04/08/18 19:00 94 18 171/95 (120) 97 Room Air 04/08/18 18:45 98.5 95 18 139/88 (105) 97 Room Air 18 18:30 89 18 148/85 (106) 97 Room Air 04/08/18 18:15 90 18 148/63 (91) 97 Room Air 04/08/18 18:00 93 18 148/86 (106) 96 Room Air 04/08/18 17:45 83 18 105/56 (72) 99 Room Air 04/08/18 17:30 113 18 129/72 (91) 98 Room Air 04/08/18 17:15 88 18 138/79 (98) 96 Room Air 04/08/18 17:00 94 18 144/89 (107) 97 Room Air 04/08/18 16:45 103 18 133/89 (104) 98 Room Air 18 16:45 103 18 133/89 (104) 98 Room Air 04/08/18 16:30 97 18 144/90 (108) 98 Room Air 04/08/18 16:00 98.4 102 18 141/96 (111) 98 Room Air 04/08/18 15:45 85 18 137/76 (96) 98 Room Air 18 15:30 90 18 130/76 (94) 99 Room Air 18 15:15 95 18 110/56 (74) 98 Room Air 18 15:00 90 18 110/59 (76) 98 Room Air 18 14:45 93 18 115/59 (77) 98 Room Air 04/08/18 14:30 100 18 98/57 (71) 98 Room Air 04/08/18 14:15 99 18 126/65 (85) 98 Room Air 04/08/18 14:00 99 18 118/75 (89) 98 Room Air 18 13:45 96 18 118/75 (89) 99 Room Air 04/08/18 13:30 91 18 119/80 (93) 97 Room Air 04/08/18 13:15 97.6 94 18 148/69 (95) 98 Room Air 04/08/18 13:00 86 18 119/71 (87) 97 Room Air 04/08/18 12:45 86 18 115/56 (75) 98 Room Air 04/08/18 12:30 88 18 131/74 (93) 98 Room Air 04/08/18 12:15 100 20 97 Room Air 04/08/18 12:00 100 20 97 Room Air 04/08/18 11:56 100 18 101/50 (67) 97 Room Air 04/08/18 11:53 101 18 102/59 (73) 97 Room Air 04/08/18 11:50 96 20 109/55 (73) 97 Room Air 04/08/18 11:47 96 20 109/55 (73) 97 Room Air 04/08/18 11:44 98 20 117/56 (76) 98 Room Air 04/08/18 11:41 98 20 129/60 (83) 97 Room Air 04/08/18 11:38 93 20 140/64 (89) 97 Room Air 04/08/18 11:35 106 20 143/97 (112) 97 Room Air 04/08/18 11:30 110 20 136/67 (90) Room Air 04/08/18 11:28 110 20 136/67 (90) Room Air 04/08/18 11:15 97 20 128/72 (90) Room Air 04/08/18 11:00 108 20 133/90 (104) Room Air 04/08/18 10:45 89 18 121/73 (89) Room Air 04/08/18 10:30 98.0 100 18 121/73 (89) Room Air 04/08/18 10:00 18 Room Air 04/08/18 09:30 77 18 106/57 (73) Room Air 04/08/18 09:00 85 18 144/65 (91) Room Air 04/08/18 08:30 85 18 144/65 (91) Room Air 04/08/18 08:00 97.7 82 18 133/75 (94) Room Air 04/08/18 07:30 79 18 135/69 (91) Room Air 12/19/18 06:35 83 18 116/56 (76) Room Air 04/08/18 05:35 98.3 98 18 131/67 (88) Room Air 04/08/18 04:35 88 18 141/69 (93) Room Air 04/08/18 03:35 78 18 141/72 (95) Room Air 04/08/18 02:35 83 18 151/83 (105) Room Air OFELIA CORCORAN MD Apr 09, 2018 02:12
[2018-04-09] MEDS ORDERED: OXYTOCIN/NORMAL SALINE 500 ML IV SCH (02:19)
[2018-04-09] MEDS ORDERED: WITCH HAZEL(TUCKS) 40 EA JAR TOP PRN (02:30)
[2018-04-09] MEDS ORDERED: BENZOCAINE/MENTHOL (DERMOPLAST) 56 ML CAN TP PRN (02:30)
[2018-04-09] MEDS: IBUPROFEN 600 MG (MOTRIN) TAB PO SCH ×3 (03:35→20:55)
[2018-04-09] MEDS ORDERED: CATHETER FLUSH 10 ML SYR IV SCH (06:00)
[2018-04-09] MEDS: PRENATAL VITAMIN 1 EA TAB PO SCH (08:06)
--- NOTE | 2018-04-09 14:36 | Anesthesia-Regional Post-Op ---
Regional Patient Condition Mental Status: Alert, Oriented x3 Circulation: Same as Pre-Op Headache: Absent Sensation: Full Recovery Motor Block: Absent Post Op Complications Complications None Follow Up Care/Instructions Patient Instructions None needed. Anesthesia/Patient Condition Patient is doing well, no complaints, stable vital signs, no apparent adverse anesthesia problems. No complications reported per nursing. [place] [facility] [place] Yes MARBIN GUIDO CRNA Apr 09, 2018 14:36
[2018-04-10] MEDS: IBUPROFEN 600 MG (MOTRIN) TAB PO SCH ×4 (02:27→20:01)
[2018-04-10 02:30] VITALS: BP 109/69
[2018-04-10 06:34] LABS: BASOPHILS % (AUTO) 0 % (0-10); EOSINOPHILS # (AUTO) 0.1 10^3/uL (0.0-0.3); EOSINOPHILS % (AUTO) 1 % (0-10); HEMATOCRIT 30 % (35-52); LYMPHOCYTES # (AUTO) 2.5 X 10^3 (1.0-4.0); LYMPHOCYTES % (AUTO) 25 % (12-44); MEAN CORPUSCULAR HEMOGLOBIN 29 PG (25-34); MEAN CORPUSCULAR HGB CONC 33 G/DL (32-36); MEAN CORPUSCULAR VOLUME 86 FL (80-99); MEAN PLATELET VOLUME 11.7 FL (7.4-10.4); MONOCYTES # (AUTO) 0.6 X 10^3 (0.0-1.0); MONOCYTES % (AUTO) 6 % (0-12); NEUTROPHILS # (AUTO) 6.9 X 10^3 (1.8-7.8); NEUTROPHILS % (AUTO) 68 % (42-75); PLATELET COUNT 182 10^3/uL (130-400); RED BLOOD COUNT 3.49 10^6/uL (4.35-5.85); RED CELL DISTRIBUTION WIDTH 14.5 % (10.0-14.5); WHITE BLOOD COUNT 10.1 10^3/uL (4.3-11.0)
[2018-04-10] MEDS: PRENATAL VITAMIN 1 EA TAB PO SCH (07:30)
[2018-04-10 08:00] VITALS: BP 97/54
[2018-04-10 14:00] VITALS: BP 129/78
[2018-04-10 20:01] VITALS: BP 146/93
--- NOTE | 2018-04-10 21:44 | Progress Note (SOAP) ---
Subjective Subjective/Events-last exam Patient is doing well. Pain well controlled. Bleeding slowed. Review of Systems Date Seen by Provider: Apr 10, 2018 Time Seen by Provider: 08:00 Objective Exam Last Set of Vital Signs Vital Signs Date Time Temp Pulse Resp B/P (MAP) Pulse Ox O2 Delivery O2 Flow Rate FiO2 04/10/18 20:01 99.0 86 18 146/93 (110) 98 Room Air Capillary Refill : I&O Intake and Output 04/10/18 00:00 Intake Total 120 ml Balance 120 ml Intake IV Total 120 ml General: Alert, Oriented X3, Cooperative Psych/Mental Status: Mood NL Results/Procedures Lab Laboratory Tests 04/10/18 06:20: White Blood Count 10.1, Red Blood Count 3.49L, Hemoglobin 10.0L, Hematocrit 30L , Mean Corpuscular Volume 86, Mean Corpuscular Hemoglobin 29, Mean Corpuscular Hemoglobin Concent 33, Red Cell Distribution Width 14.5, Platelet Count 182, Mean Platelet Volume 11.7H, Neutrophils (%) (Auto) 68, Lymphocytes (%) (Auto) 25 , Monocytes (%) (Auto) 6, Eosinophils (%) (Auto) 1, Basophils (%) (Auto) 0, Neutrophils # (Auto) 6.9, Lymphocytes # (Auto) 2.5, Monocytes # (Auto) 0.6, Eosinophils # (Auto) 0.1, Basophils # (Auto) 0.0 Assessment/Plan Assessment/Plan Assessment & Plan PPD #1 s/p Routine care. Anticipate DC home tomorrow as baby has high risk bili with plans to repeat in am. Clinical Quality Measures DVT/VTE Risk/Contraindication: Risk Factor Score Per Nursin RFS Level Per Nursing on Admit: 1=Low/No VTE PPX KAVON DING DO Apr 10, 2018 21:44
[2018-04-11 02:35] VITALS: BP 126/80
[2018-04-11] MEDS: IBUPROFEN 600 MG (MOTRIN) TAB PO SCH (06:08)
[2018-04-11] MEDS ORDERED: FERR325T18 PO (07:47)
[2018-04-11] MEDS ORDERED: PNV1TABL67 PO (07:47)
[2018-04-11] MEDS ORDERED: IBUP-844 PO (07:47)
--- NOTE | 2018-04-11 07:48 | Discharge Instructions ---
Discharge Inst-Women[facility] Serv Depart Medications New, Converted or Re-Newed RX: Transmitted to Pharmacy New Medications: Ferrous Sulfate (Ferrous Sulfate) 325 Mg Tablet 325 MG PO DAILY, #30 TAB 0 Refills Ibuprofen (Ibu) 600 Mg Tablet 600 MG PO Q6H PRN for PAIN-MILD TO MODERATE, #60 TAB 0 Refills Pnv with Ca,No.72/Iron/FA (Pnv Plus Multivit Tab) 1 Each Tablet 1 EA PO DAILY@0700, #30 TAB 11 Refills Follow Up/Instructions Goal/Follow Up: Follow up with Dr. Trotter in 6 weeks for visit. Activity Activity: Activity as Tolerated (avoid strenuous activity x 6 weeks) Driving Instructions: You May Drive Nothing Inside Vagina: No Douching, No [place], No Tampons Diet Discharge Diet: Regular Diet Symptoms to Report to : Swelling Increased, Fever Over 101 Degrees F, Pain/ Pressure in Chest, Vaginal Bleeding Increase, Cramps in Feet or Legs, Vaginal Discharge Foul, Dizziness/Fainting, Shortness of Breath For Any Problems or Questions: Contact Your Physician OFELIA TROTTER MD Apr 11, 2018 07:48
--- NOTE | 2018-04-11 08:37 | Discharge Summary ---
Diagnosis/Chief Complaint Date of Admission Apr 07, 2018 at 19:14 Date of Discharge Apr 11, 2018 Admission Diagnosis Admission Diagnosis 41 weeks gestation Induction of labor planned Discharge Diagnosis s/p spontaneous vaginal delivery- unremarkable course anemia- started iron daily Chief Complaint/HPI Chief Complaint/HPI 22 yo G1 now P1 presented at 40w6d for IOL for approaching postdates. Discharge Summary-Simple/Stand Procedures Spontaneous vaginal delivery First degree left vaginal wall laceration repair Discharge Physical Examination Allergies: Coded Allergies: No Known Drug Allergies (Unverified , 04/07/18) Vitals & I&Os Vital Sign - Last 12Hours Date Time Temp Pulse Resp B/P (MAP) Pulse Ox O2 Delivery O2 Flow Rate FiO2 04/11/18 02:35 98.6 88 18 126/80 (95) 97 Room Air General Appearance: Alert, No Acute Distress Respiratory: Clear to Auscultation, Normal Air Movement Cardiovascular: Regular Rate, No Murmurs Abdominal: Other (fundus firm at umbilicus, nontender) Psych/Mental Status: Mental Status NL Hospital Course See final discharge diagnosis. Labs Laboratory Tests Test 04/10/18 06:20 Range/Units White Blood Count 10.1 4.3-11.0 10^3/uL Red Blood Count 3.49 L 4.35-5.85 10^6/uL Hemoglobin 10.0 L 11.5-16.0 G/DL Hematocrit 30 L 35-52 % Mean Corpuscular Volume 86 80-99 FL Mean Corpuscular Hemoglobin 29 25-34 PG Mean Corpuscular Hemoglobin Concent 33 32-36 G/DL Red Cell Distribution Width 14.5 10.0-14.5 % Platelet Count 182 130-400 10^3/uL Mean Platelet Volume 11.7 H 7.4-10.4 FL Neutrophils (%) (Auto) 68 42-75 % Lymphocytes (%) (Auto) 25 12-44 % Monocytes (%) (Auto) 6 0-12 % Eosinophils (%) (Auto) 1 0-10 % Basophils (%) (Auto) 0 0-10 % Neutrophils # (Auto) 6.9 1.8-7.8 X 10^3 Lymphocytes # (Auto) 2.5 1.0-4.0 X 10^3 Monocytes # (Auto) 0.6 0.0-1.0 X 10^3 Eosinophils # (Auto) 0.1 0.0-0.3 10^3/uL Basophils # (Auto) 0.0 0.0-0.1 10^3/uL Discharge Instructions to patient/family Please see electronic discharge instructions given to patient. Discharge Medications Reviewed and agree with Discharge Medication list on patient's Discharge Instruction sheet Clinical Quality Measures DVT/VTE Risk/Contraindication: Risk Factor Score Per Nursin RFS Level Per Nursing on Admit: 1=Low/No VTE PPX Copy Copies To 1: OFELIA CORCORAN MD, BETHANY N MD Apr 11, 2018 08:37
[2018-04-11 09:00] VITALS: BP 130/83
[2018-04-11] MEDS: PRENATAL VITAMIN 1 EA TAB PO SCH (09:00)
== END 2018-04-11 11:15 | disposition home or self-care (01) | DRG 806 ==
LOC: LDRP 19:14
PROVIDERS: ADMIT Family Medicine; ATTEND Family Medicine
PROC: 3E033VJ Introduction of Other Hormone into Peripheral Vein, Percutaneous Approach (ICD-10-PCS; 2018-04-08)
PROC: 10E0XZZ Delivery of Products of Conception, External Approach (ICD-10-PCS; principal; 2018-04-09)
PROC: 0UQGXZZ Repair Vagina, External Approach (ICD-10-PCS; 2018-04-09)
DX: O48.0 Post-term pregnancy (principal); O71.4 Obstetric high vaginal laceration alone; O90.81 Anemia of the puerperium; D64.9 Anemia, unspecified; Z37.0 Single live birth; Z3A.41 41 weeks gestation of pregnancy
CPT/HCPCS: 36415; 81000; 85025; 86850; 86900; 86901

== ENCOUNTER 2019-10-29 22:18 | Emergency (ER) | payer MEDICAID ==
[~2019-10-29 22:18] MED LIST: FERR325T18 PO; IBUP-844 PO; PNV1TABL67 PO
[2019-10-29 22:30] VITALS: BP 117/81
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
[2019-10-29] MEDS ORDERED: HYDROcodone/APAP 5 MG/325 MG (LORTAB) TAB PO ONE (22:45)
[2019-10-29] MEDS ORDERED: RX-HYDROCODONE/APAP 5/325 MG #4 TAB PK PO PRN (23:00)
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
--- OUTSIDE RECORDS SUMMARY | 2019-10-29 23:01 | XMS REPORT | Continuity of Care Document ---
Demographics Preferred Language Unknown Marital Status Unknown Presybeterian Affiliation Unknown Race Unknown Ethnic Group Unknown Author Organization Unknown Address Unknown Phone Unavailable Allergies Active Description Code Type Severity Reaction Onset Reported/Identified Relationship to Patient Clinical Status Yes Penicillins Drug Allergy 03/23/2012 Yes Penicillins Drug Allergy N/A N/A 03/23/2012 Yes No Known Drug Allergies [id number] Drug Allergy Unknown N/A 04/07/2018 Medications There is no data. Problems Date Dx Coded Attending Type Code Diagnosis Diagnosed By 01/16/2010 V06.5 DT, TETANUS- DIPHTHERIA [Td] ,TDAP 01/16/2010 V06.5 DT, TETANUS- DIPHTHERIA [Td] ,TDAP 01/16/2010 KAVON DING DO V06.5 DT, TETANUS-DIPHTHERIA [Td] ,TDAP 01/16/2010 SHAHLA GARCIA APRN V06.5 DT, TETANUS-DIPHTHERIA [Td] ,TDAP 03/23/2012 382.9 OTIT IS MEDIA 03/23/2012 382.9 OTIT IS MEDIA 03/23/2012 KAVON DING DO 382.9 OTITIS MEDIA 03/23/2012 SHAHLA GARCIA APRN 382.9 OTITIS MEDIA 05/26/2012 462 PHARYN GITIS ACUTE 05/26/2012 784.91 POS TNASAL DRIP 05/26/2012 KAVON DING DO 462 PHARYNGITIS ACUTE 05/26/2012 KAVON DING DO 784.91 POSTNASAL DRIP 05/26/2012 SHAHLA GARCIA APRN A 462 PHARYNGITIS ACUTE 05/26/2012 SHAHLA GARCIA APRN A 784.91 POSTNASAL DRIP 02/08/2014 KAVON DING DO 780.93 MEMORY LOSS 02/08/2014 KAVON DING DO 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 CONTUSION WITHOUT OPEN INTRACRANIAL WOUND WITH STATE OF CONSCIOUSNESS UNSPECIFIED 02/08/2014 SHAHLA GARCIA APRN 780.93 MEMORY LOSS 02/08/2014 SHAHLA GARCIA APRN 851.80 OTHER AND UNSPECIFIED CEREBRAL LACERATIO N AND CONTUSION WITHOUT OPEN INTRACRANIAL WOUND WITH STATE OF CONSCIOUSNESS UNSPECIFIED 04/28/2014 RADHA CHRISTINE, SHAHLA A 599.0 URINARY TRACT INFECTION 04/28/2014 RAD[facility] CHILD WELFARE CONSULTANT, SHAHLA A 788.1 DYSURIA 10/06/2017 OFELIA CORCORAN MD Ot Z34.91 ENCNTR FOR SUPRVSN OF NORMAL PREG, UNSP, 10/06/2017 OFELIA CORCORAN MD Ot Z3A.14 14 WEEKS GESTATION OF 10/06/2017 OFELIA CORCORAN MD Ot Z34.91 ENCNTR [...] NORMAL PREG, UNSP, 03/23/2018 OFELIA CORCORAN MD Ot Z3A.14 14 WEEKS GESTATION OF 03/23/2018 OFELIA CORCORAN MD Ot Z36.89 ENCOUNTER FOR OTHER SPECIFIED 03/23/2018 OFELIA CORCORAN MD Ot Z3A.33 33 WEEKS GESTATION OF 03/27/2018 OFELIA CORCORAN MD Ot Z34.93 ENCNTR FOR SUPRVSN OF NORMAL PREG, UNSP, 04/10/2018 OFELIA CORCORAN MD Ot Z34.91 ENCNTR FOR SUPRVSN OF NORMAL PREG, UNSP, 04/10/2018 OFELIA CORCORAN MD Ot Z3A.14 14 WEEKS GESTATION OF 04/10/2018 OFELIA CORCORAN MD Ot Z36.89 ENCOUNTER FOR OTHER SPECIFIED 04/10/2018 OFELIA CORCORAN MD Ot Z3A.33 33 WEEKS GESTATION OF 04/10/2018 OFELIA CORCORAN MD Ot Z34.93 ENCNTR FOR SUPRVSN OF NORMAL PREG, UNSP, 04/10/2018 OFELIA CORCORAN MD Ot Z34.91 ENCNTR FOR SUPRVSN OF NORMAL PREG, UNSP, 04/10/2018 OFELIA CORCORAN MD Ot Z3A.14 14 WEEKS GESTATION OF 04/10/2018 OFELIA CORCORAN MD Ot Z36.89 ENCOUNTER FOR OTHER SPECIFIED 04/10/2018 OFELIA CORCORAN MD Ot Z3A.33 33 WEEKS GESTATION OF 04/10/2018 OFELIA CORCORAN MD Ot Z34.93 ENCNTR FOR SUPRVSN OF NORMAL PREG, UNSP, 04/11/2018 OFELIA CORCORAN MD Ot D64 .9 ANEMIA, UNSPECIFIED 04/11/2018 OFELIA CORCORAN MD Ot O48 .0 POST-TERM 04/11/2018 OFELIA CORCORAN MD, Ot O71 .4 OBSTETRIC HIGH VAGINAL LACERATION ALONE 04/11/2018 OFELIA CORCORAN MD Ot O90.81 ANEMIA OF THE PUERPERIUM 04/11/2018 OFELIA CORCORAN MD Ot Z37 .0 SINGLE LIVE 04/11/2018 OFELIA CORCORAN MD Ot Z3A.41 41 WEEKS GESTATION OF 06/08/2018 OFELIA CORCORAN MD Ot Z36.89 ENCOUNTER FOR OTHER SPECIFIED 06/08/2018 OFELIA CORCORAN MD Ot Z3A.33 33 WEEKS GESTATION OF 07/27/2018 OFELIA CORCORAN MD Ot Z36.89 ENCOUNTER FOR OTHER SPECIFIED 07/27/2018 OFELIA CORCORAN MD Ot Z3A.33 33 WEEKS GESTATION OF 06/21/2019 OFELIA CORCORAN MD Ot Z34.91 ENCNTR FOR SUPRVSN OF NORMAL PREG, UNSP, 06/21/2019 OFELIA CORCORAN MD Ot Z3A.14 14 WEEKS GESTATION OF 06/21/2019 OFELIA CORCORAN MD Ot Z36.89 ENCOUNTER FOR OTHER SPECIFIED 06/21/2019 OFELIA CORCORAN MD Ot Z3A.33 33 WEEKS GESTATION OF 06/21/2019 OFELIA CORCORAN MD Ot Z34.93 ENCNTR FOR SUPRVSN OF NORMAL PREG, UNSP, 06/21/2019 OFELIA CORCORAN MD Ot Z34.91 ENCNTR FOR SUPRVSN OF NORMAL PREG, UNSP, 06/21/2019 OFELIA CORCORAN MD Ot Z3A.14 14 WEEKS GESTATION OF 06/21/2019 OFELIA CORCORAN MD Ot Z36.89 ENCOUNTER FOR OTHER SPECIFIED 06/21/2019 OFELIA CORCORAN MD Ot Z3A.33 33 WEEKS GESTATION OF 06/21/2019 OFELIA CORCORAN MD Ot Z34.93 ENCNTR FOR SUPRVSN OF NORMAL PREG, UNSP, 06/21/2019 OFELIA CORCORAN MD Ot Z34.91 ENCNTR FOR SUPRVSN OF NORMAL PREG, UNSP, 06/21/2019 OFELIA CORCORAN MD N Ot Z3A.14 14 WEEKS GESTATION OF 06/21/2019 OFELIA CORCORAN MD Ot Z36.89 ENCOUNTER FOR OTHER SPECIFIED 06/21/2019 OFELIA CORCORAN MD Ot Z3A.33 33 WEEKS GESTATION OF 06/21/2019 OFELIA CORCORAN MD Ot Z34.93 ENCNTR FOR SUPRVSN OF NORMAL PREG, UNSP, Procedures Code Description [place] [id number] STRE P A (IN-HOUSE) 05/26/[address] NGIO, HEAD 02/08/2014 82328 UA W / CULTURE IF INDICATED 04/28/2014 [id number] IN TRODUCTION OF OTH HORMONE INTO PERIPH 04/08/2018 [id number] RE PAIR VAGINA, EXTERNAL APPROACH 04/09/2018 [id number] DE LIVERY OF PRODUCTS OF CONCEPTION, EXTE 04/09/2018 Results Test Result Range hCG,Beta Subunit,Qual,Serum - 07/30/16 1 6:04 hCG,Beta Subunit,Qual,Serum Negative mIU/mL Negative <6 CULTURE, [...] 11:24 WHITE BLOOD CELL COUNT 9.5 Thousand/uL 3 .8-10.8 RED BLOOD CELL COUNT 3.78 Million/uL 3.8 0-5.10 HEMOGLOBIN 11.5 g/dL 11.7-15.5 HEMATOCRIT 33.6 % 35.0-45.0 MCV 88.9 fL 80.0-100.0 MCH 30.4 pg 27.0-33.0 MCHC 34.2 g/dL 32.0-36.0 RDW 12.7 % 11.0-15.0 PLATELET COUNT 237 Thousand/uL 140-400 MPV 10.5 fL 7.5-12.5 ABSOLUTE NEUTROPHILS 6660 cells/uL 1500- 7800 ABSOLUTE LYMPHOCYTES 2081 cells/uL 850-3 900 ABSOLUTE MONOCYTES 627 cells/uL 200-950 ABSOLUTE EOSINOPHILS 105 cells/uL 15-500 ABSOLUTE BASOPHILS 29 cells/uL 0-200 NEUTROPHILS 70.1 % NRG LYMPHOCYTES 21.9 % NRG MONOCYTES 6.6 % NRG EOSINOPHILS 1.1 % NRG BASOPHILS 0.3 % NRG CULTURE, GENITAL - 01/27/18 14:12 CULTURE, GENITAL SEE NOTE NRG CULTURE, GROUP B STREP WITH SUSCEPTIBILI TY - 03/10/18 16:07 CULTURE, GROUP B STREP WITH SUSCEPTIBILITY SEE NOT E NRG Capillary blood glucose measurement by g lucometer (mass/volume) - 03/25/18 08:27 Capillary blood glucose measurement by glucometer (mas s/volume) 75 mg/dL 70-110 Serum or plasma glucose measurement 3 ho urs post challenge (mass/volume) - 03/25/18 08:30 Serum or plasma glucose measurement 3 ho urs post challenge (mass/volume) NRG Complete urinalysis with reflex to cultu re - 04/07/18 19:15 Urine color determination YELLOW NRG Urine clarity determination CLEAR NR G Urine pH measurement by test strip 6.5 5-9 Specific gravity of urine by test strip 1.015 1.016-1.022 Urine protein assay by test strip, semi-quantitative 2+ NEGATIVE Urine glucose detection by automated test strip 3+ NEGATIVE Erythrocytes detection in urine sediment by light micr oscopy NEGATIVE NEGATIVE Urine ketones detection by automated test strip 1+ NEGATIVE Urine nitrite detection by test strip NEGATIVE NEGATIVE Urine total bilirubin detection by test strip NEGA TIVE NEGATIVE Urine urobilinogen measurement by automated test strip (mass/volume) 1 mg/dL NORMAL Urine leukocyte esterase detection by dipstick 1+ NEGATIVE Automated urine sediment erythrocyte cou nt by microscopy (number/high power field) [HPF] NRG Automated urine sediment leukocyte count by microscopy (number/high power field) [HPF] NRG Bacteria detection in urine sediment by light microsco py FEW NRG Squamous epithelial cells detection in u rine sediment by light microscopy 2-5 NRG Crystals detection in urine sediment by light microsco py NONE NRG Casts detection in urine sediment by light microscopy NONE NRG Mucus detection in urine sediment by light microscopy LARGE NRG Complete urinalysis with reflex to culture NO NRG Complete blood count (CBC) with automate d white blood cell (WBC) differential - 04/07/18 20:00 Blood leukocytes automated count (number/volume) 8.3 10*3/uL 4.3-11.0 Blood erythrocytes automated count (number/volume) 4.27 10*6/uL 4.35-5.85 Venous blood hemoglobin measurement (mass/volume) 12.1 g/dL 11.5-16.0 Blood hematocrit (volume fraction) 35 % 35-52 Automated erythrocyte mean corpuscular volume 83 [ foz_us] 80-99 Automated erythrocyte mean corpuscular h emoglobin (mass per erythrocyte) 28 pg 25-34 Automated erythrocyte mean corpuscular h emoglobin concentration measurement (mass/volume) 34 g/dL 32-36 Automated erythrocyte distribution width ratio 14. 1 % 10.0- 14.5 Automated blood platelet count (count/volume) 237 10*3/uL 130-400 Automated blood platelet mean volume measurement 11.4 [foz_us] 7.4-10.4 Automated blood neutrophils/100 leukocytes 71 % 42-75 Automated blood lymphocytes/100 leukocytes 23 % 12-44 Blood monocytes/100 leukocytes 6 % 0-12 Automated blood eosinophils/100 leukocytes 0 % 0-10 Automated blood basophils/100 leukocytes 0 % 0-10 Blood neutrophils automated count (number/volume) 5.9 10*3 1.8-7.8 Blood lymphocytes automated count (number/volume) 1.9 10*3 1.0-4.0 Blood monocytes automated count (number/volume) 0. 5 10*3 0.0-1.0 Automated eosinophil count 0.0 10*3/uL 0 .0-0.3 Automated blood basophil count (count/volume) 0.0 10*3/uL 0.0-0.1 Blood type T Indirect antibody screen pa kaley - 04/07/18 20:00 ABO+Rh group AP NRG Transfusion band number [id number] NR Blood group antibody screen NEGATIVE NR G Complete blood count (CBC) with automate d white blood cell (WBC) differential - 04/10/18 06:20 Blood leukocytes automated count (number/volume) 10.1 10*3/uL 4.3-11.0 Blood erythrocytes automated count (number/volume) 3.49 10*6/uL 4.35-5.85 Venous blood hemoglobin measurement (mass/volume) 10.0 g/dL 11.5-16.0 Blood hematocrit (volume fraction) 30 % 35-52 Automated erythrocyte mean corpuscular volume 86 [ foz_us] 80-99 Automated erythrocyte mean corpuscular h emoglobin (mass per erythrocyte) 29 pg 25-34 Automated erythrocyte mean corpuscular h emoglobin concentration measurement (mass/volume) 33 g/dL 32-36 Automated erythrocyte distribution width ratio 14. 5 % 10.0- 14.5 Automated blood platelet count (count/volume) 182 10*3/uL 130-400 Automated blood platelet mean volume measurement 11.7 [foz_us] 7.4-10.4 Automated blood neutrophils/100 leukocytes 68 % 42-75 Automated blood lymphocytes/100 leukocytes 25 % 12-44 Blood monocytes/100 leukocytes 6 % 0-12 Automated blood eosinophils/100 leukocytes 1 % 0-10 Automated blood basophils/100 leukocytes 0 % 0-10 Blood neutrophils automated count (number/volume) 6.9 10*3 1.8-7.8 Blood lymphocytes automated count (number/volume) 2.5 10*3 1.0-4.0 Blood monocytes automated count (number/volume) 0. 6 10*3 0.0-1.0 Automated eosinophil count 0.1 10*3/uL 0 .0-0.3 Automated blood basophil count (count/volume) 0.0 10*3/uL 0.0-0.1 Encounters ACCT No. Visit Date/Time Discharge Status Pt. Type Provider Facility Loc./Unit Complaint [id number] 07/31/2016 08:07:00 Document Registration [id number] 04/07/2018 19:14:00 018 11:15:00 DIS Inpatient JEWELL BEGUM, OFELIA [facility] LDRP INDUCTION [id number] 03/25/2018 08:09:00 23:59:59 CLS Outpatient OFELIA CORCORAN MD [facility] LAB Z34.93 [id number] 02/13/2018 14:37:00 23:59:59 CLS Preadmit OFELIA CORCORAN MD [facility] RAD EVALUATE ANATOMY NOT SE EN ON PRIOR SONOGRAM [id number] 01/30/2018 12:22:00 23:59:59 CLS Outpatient OFELIA CORCORAN MD [facility] RAD CARE IN THIRD TRIMESTER Z34.93 [id number] 11/11/2017 13:05:00 23:59:59 CLS Preadmit OFELIA CORCORAN MD [facility] RAD CARE IN SECOND TRIMESTER [id number] 10/03/2017 10:00:00 23:59:59 CLS Outpatient OFELIA CORCORAN MD [facility] RAD NORMAL FIRST [id number] 10/29/2019 22:20:[address] Emergency NATALEE SUTTON APRN [facility] ER KNEE AND ANKLE PAIN L LEG [id number] 09/04/2018 16:40:00 09/04/2018 23:59:5 9 CLS Outpatient EVANSMARIA [facility] [id number] 03/10/2018 11:20:00 Document Registration [id number] 01/27/2018 11:20:00 Document Registration [id number] 01/13/2018 11:20:00 Document Registration [id number] 11/06/2017 11:20:00 Document Registration [id number] 08/27/2017 14:20:00 Document Registration [id number] 04/28/2014 14:40:00 04/28/2014 23:59: 59 CLS Outpatient SHAHLA GARCIA APRN [id number] 02/08/2014 16:07:00 02/08/2014 23:59: 59 CLS Outpatient KAVON DING DO [id number] 05/26/2012 17:52:00 05/26/2012 23:59: 59 CLS Outpatient [id number] 03/23/2012 12:02:00 03/23/2012 23:59:5 9 [facility] Outpatient
--- NOTE | 2019-10-30 07:38 | Diagnostic Imaging Report ---
Indication: Fall with left knee pain. Comparison: None. Discussion: Three views of left knee were obtained. No acute fracture, dislocation, or other osseous abnormality identified. No significant degenerative disease. Alignment is anatomic. Soft tissues are unremarkable. No effusion. Impression: 1. Negative left knee. Dictated by: Dictated on workstation # [id number]
--- NOTE | 2019-10-30 07:38 | Diagnostic Imaging Report ---
Indication: Fall with left ankle pain and swelling. Comparison: None. Discussion: Three views left ankle were obtained. No acute fracture, dislocation, or other osseous abnormality identified. No significant degenerative disease. Alignment is anatomic. Soft tissues are unremarkable. Impression: 1. Negative left ankle. Dictated by: Dictated on workstation # [id number]
== END 2019-10-29 23:19 | disposition home or self-care (01) ==
LOC: EDUNIT# 22:18 → ER 22:20
DX: S93.402A Sprain of unspecified ligament of left ankle, initial encounter (principal); M23.92 Unspecified internal derangement of left knee; X50.1XXA Overexertion from prolonged static or awkward postures, initial encounter; W18.39XA Other fall on same level, initial encounter
CPT/HCPCS: 73562; 73610; 99283; L1830